=== PATIENT | male | born 1985 | race Caucasian/White ===

== ENCOUNTER 2020-01-08 19:50 | Emergency (ER) | payer OTHER, SELFPAY ==
--- NOTE | 2020-01-08 20:01 | ED.BACK ---
HPI - Back Pain/Injury General Chief Complaint: Back Pain/Injury Stated Complaint: back pain Time Seen by Provider: 01/08/20 20:02 Source: patient Mode of arrival: ambulatory Limitations: no limitations History of Present Illness HPI Narrative: Uday Kahn is a 34 yo male with a hx of L sided back pain who comes to [facility] care with L sided back pain that comes and goes x 3-4 days. No current primary care physician; no loss of bladder or bowel control Related Data Allergies Allergy/AdvReac Type Severity Reaction Status Date / Time No Known Allergies Allergy Unknown Unverified 06/22/16 16:51 Review of Systems Review of Systems: Narrative: CONSTITUTIONAL: Denies fever, chills, sweats. EYES: Denies visual changes, redness, discharge. ENT: Denies rhinorrhea, congestion, sore throat, otalgia. CARDIOVASCULAR: Denies chest pain, palpitations, edema. RESPIRATORY: Denies dyspnea, wheezing, cough GASTROINTESTINAL: Denies abdominal pain, nausea, vomiting, diarrhea. GENITOURINARY: Denies dysuria, hematuria, abnormal discharge SKIN: Denies rash or itching. NEUROLOGIC: Denies numbness, or focal weakness. PSYCHIATRIC: Denies anxiety or depression. Left-sided lower back pain PMFSH Past Medical History Medical History Chronic back pain Social History Social History Smoking status: Current every day smoker Alcohol intake: never Substance use: current Substance use type: marijuana Comments At time of signature, I agree with nursing past medical, surgical, social and family history. There is no relevant family history pertinent to the presenting complaint. Exam Narrative: Exam Narrative: GENERAL: This is a well-nourished, well-developed patient, in moderate distress. HEAD: normocephalic, atraumatic. EYES: Sclera clear/white. Vision is grossly intact. EARS: External ears normal. Hearing grossly intact. NOSE: External nose normal without nasal discharge, nares without redness, no rhinorrhea. THROAT: Mucous membranes moist NECK: Neck supple, non-tender CARDIOVASCULAR: Regular rate and rhythm without murmurs, gallops, or rubs. RESPIRATORY: Clear to auscultation. Breath sounds equal bilaterally. No wheezes, rales, or rhonchi. GASTROINTESTINAL: Abdomen soft, SKIN: warm, intact with no suspicious lesions NEURO: awake, alert, and oriented to person, place and time. There were no obvious focal neurologic abnormalities. Steady gait EXTREMITIES: Normal range of motion. BACK: tender left lower back without deformity Course Course Emergency Course: Started on baclofen and Naprosyn Given referrals for primary care physician Vital Signs Vital signs: Vital Signs Temperature 99.5 F 01/08/20 20:02 Pulse Rate 93 01/08/20 20:02 Respiratory Rate 16 01/08/20 20:02 Blood Pressure 139/80 01/08/20 20:02 Pulse Oximetry 99 01/08/20 20:02 Temperature 99.5 F 01/08/20 20:02 Pulse Rate 93 01/08/20 20:02 Respiratory Rate 16 01/08/20 20:02 Blood Pressure 139/80 01/08/20 20:02 Pulse Oximetry 99 01/08/20 20:02 MDM - Back Pain/Injury Differential Diagnosis Differential diagnosis: Likely lumbar radiculopathy, sciatica and other Discharge Plan Discharge Clinical Impression: Sciatica Qualifiers: Laterality: left Qualified Code(s): M54.32 - Sciatica, left side Patient Disposition: Home, Self-Care Condition: Stable Instructions: Sciatica (ED), Lower Back Exercises (ED) Additional Instructions: Take medication as prescribed; use ice or heat to lower back If pain improves should do stretching exercises Close care with a primary care physician Prescriptions: New baclofen 10 mg tablet 10 mg PO TID Qty: 20 RF: 0 naproxen [EC-Naproxen] 500 mg tablet,delayed release (DR/EC) 500 mg PO BID Qty: 30 RF: 0 Follow-up/Referrals: PHYSICIAN,FLAP CURER [Primary Care Provider
[2020-01-08 20:02] VITALS: BP 139/80; PULSE 93; RESP 16; TEMP 37.5; O2SAT 99
== END 2020-01-08 20:20 | disposition home or self-care (01) ==
PROVIDERS: Emergency Provider Nurse Practitioner
DX: M54.32 Sciatica, left side (principal); F17.200 Nicotine dependence, unspecified, uncomplicated
CPT/HCPCS: 99203; G0463